=== PATIENT | male | born 1945 | race Caucasian/White ===

== ENCOUNTER 2018-03-11 05:39 | Inpatient (IN) ==
[2018-03-11] MEDS ORDERED: VANCOMYCIN 1,000 MG VIAL ONE (05:56)
[2018-03-11] MEDS ORDERED: ceFAZolin 1,000 MG VIAL ONE (05:56)
[2018-03-11] MEDS ORDERED: ROPIVACAINE 0.5% 30 ML VIAL ONE (06:26)
[2018-03-11] MEDS ORDERED: VANCOMYCIN INJ 1,000 MG in SODIUM CHLORIDE 0.9% 250 ML IV ONE (06:30)
[2018-03-11] MEDS ORDERED: ceFAZolin 1,000 MG in SYRINGE 1 EACH IV ONE (06:30)
[2018-03-11] MEDS: LACTATED RINGERS 1,000 ML IV SCH ×2 (06:50→16:59)
[2018-03-11] MEDS ORDERED: BISACODYL 10 MG SUPP RECTAL PRN (07:07)
[2018-03-11] MEDS ORDERED: LACTULOSE 20 GM/30 ML UDCUP PO PRN (07:07)
[2018-03-11] MEDS ORDERED: MORPHINE 4 MG/1 ML VIAL IV PRN (07:07)
[2018-03-11] MEDS ORDERED: diphenhydrAMINE CAP 25 MG CAPSULE PO PRN (07:07)
[2018-03-11] MEDS ORDERED: MAGNESIUM HYDROXIDE SUSP 30 ML UDCUP PO PRN (07:07)
[2018-03-11] MEDS ORDERED: NALOXONE 0.4 MG/ML VIAL IV PRN (07:07)
[2018-03-11] MEDS ORDERED: TEMAZEPAM 7.5 MG CAPSULE PO PRN (07:07)
[2018-03-11] MEDS ORDERED: PROMETHAZINE 25 MG/1 ML VIAL IM PRN (07:07)
[2018-03-11] MEDS ORDERED: ONDANSETRON 4 MG/2 ML VIAL IV PRN (07:07)
[2018-03-11] MEDS ORDERED: PROPOFOL 500 MG/50 ML BOTTLE IV ONE (08:53)
[2018-03-11] MEDS ORDERED: ONDANSETRON 4 MG/2 ML VIAL ONE (08:53)
[2018-03-11] MEDS ORDERED: fentaNYL 100 MCG/2 ML VIAL ONE (08:53)
[2018-03-11] MEDS ORDERED: MIDAZOLAM 2 MG/2 ML VIAL ONE (08:53)
[2018-03-11] MEDS ORDERED: LIDOCAINE 1% 5 ML VIAL ONE (08:53)
[2018-03-11] MEDS ORDERED: ACETAMINOPHEN 1,000 MG/100 ML VIAL IV ONE (08:53)
[2018-03-11] MEDS ORDERED: PHENYLEPHRINE 1 MG/10 ML SYRINGE IV ONE (08:54)
[2018-03-11] MEDS: MORPHINE PCA 30 MG/30 ML SYRINGE IV SCH (09:01)
[2018-03-11] MEDS ORDERED: MORPHINE PCA 30 MG/30 ML SYRINGE IV ONE (09:01)
[2018-03-11 16:23] LABS: Basophils % 0.2 % (0.0-0.8); Eosinophils # 0.2 10*3/uL (0.0-0.87); Eosinophils % 2.2 % (0.00-10.9); Immature Granulocytes % 0.4 %; Immature Granulocytes Absolute 0.03 #; Lymphocytes # 1.4 10*3/uL (1.4-4.0); Lymphocytes % 17.9 % (21.2-54.2); Mean Corpuscular Hemoglobin 32 PG (27-34); Mean Corpuscular Volume 91.3 FL (87-102); Mean Platelet Volume 10.1 FL (9.6-12.0); Monocytes # 0.6 10*3/uL (0.11-0.8); Monocytes % 7.7 % (1.7-12.7); Neutrophils # 5.8 10*3/uL (1.4-7.4); Neutrophils % 71.6 % (38.7-73.9); Platelet Count 218 T/CUMM (130-400); Red Blood Count 4.38 MC/CUMM (3.8-5.5); Red Cell Distribution Width 12.7 % (9.3-17.3); White Blood Count 8.1 T/CUMM (4-12)
[2018-03-11] MEDS: ceFAZolin 2,000 MG in PREMIX 1 EACH IV SCH (16:51)
[2018-03-11 16:59] LABS: Calcium 8.3 MG/DL (8.5-10.1); Osmolality,Calculated 286.8 MOS/KG (273-304); Potassium 3.8 MMOL/L (3.5-5.1)
[2018-03-11] MEDS: FONDAPARINUX 2.5 MG/0.5 ML SYRINGE SUBCUT SCH (18:51)
[2018-03-11] MEDS: TAMSULOSIN 0.4 MG CAPSULE PO SCH (18:51)
[2018-03-11] MEDS: ASPIRIN EC 81 MG TABLET PO SCH (19:08)
[2018-03-11] MEDS: DOCUSATE SODIUM 100 MG CAPSULE PO SCH ×2 (19:09→21:17)
[2018-03-11] MEDS: LISINOPRIL 10 MG TABLET PO SCH (19:09)
[2018-03-11] MEDS: PRAVASTATIN 20 MG TABLET PO SCH (19:09)
[2018-03-11] MEDS: OMEGA 3 ACID ETHYL ESTERS 1 GM CAPSULE PO SCH ×2 (19:09→21:17)
[2018-03-12] MEDS: ceFAZolin 2,000 MG in PREMIX 1 EACH IV SCH (00:53)
[2018-03-12 06:10] LABS: Basophils % 0.5 % (0.0-0.8); Eosinophils # 0.5 10*3/uL (0.0-0.87); Eosinophils % 5.1 % (0.00-10.9); Hematocrit 37.2 VOL% (42.0-52.0); Hemoglobin 12.6 GM/DL (14.0-18.0); Immature Granulocytes % 0.5 %; Immature Granulocytes Absolute 0.04 #; Lymphocytes # 1.6 10*3/uL (1.4-4.0); Lymphocytes % 17.6 % (21.2-54.2); Mean Corpuscular HGB Conc 33.9 GM/DL (32-36); Mean Corpuscular Hemoglobin 32 PG (27-34); Mean Platelet Volume 10.6 FL (9.6-12.0); Monocytes # 0.8 10*3/uL (0.11-0.8); Neutrophils % 67.3 % (38.7-73.9); Platelet Count 204 T/CUMM (130-400); Red Cell Distribution Width 12.4 % (9.3-17.3); White Blood Count 8.8 T/CUMM (4-12)
[2018-03-12 06:24] LABS: Osmolality,Calculated 275.7 MOS/KG (273-304)
[2018-03-12] MEDS ORDERED: ACETAMINOPHEN 325 MG TABLET PO PRN (07:09)
[2018-03-12] MEDS: LACTATED RINGERS 1,000 ML IV SCH (08:35)
[2018-03-12] MEDS: MORPHINE PCA 30 MG/30 ML SYRINGE IV SCH (10:12)
[2018-03-12] MEDS: DOCUSATE SODIUM 100 MG CAPSULE PO SCH ×2 (10:15→21:09)
[2018-03-12] MEDS: LISINOPRIL 10 MG TABLET PO SCH (10:15)
[2018-03-12] MEDS: ASPIRIN EC 81 MG TABLET PO SCH (10:15)
[2018-03-12] MEDS: OMEGA 3 ACID ETHYL ESTERS 1 GM CAPSULE PO SCH ×2 (10:16→21:09)
[2018-03-12] MEDS: PRAVASTATIN 20 MG TABLET PO SCH (12:12)
[2018-03-12] MEDS: FONDAPARINUX 2.5 MG/0.5 ML SYRINGE SUBCUT SCH (17:55)
[2018-03-12] MEDS: TAMSULOSIN 0.4 MG CAPSULE PO SCH (18:00)
[2018-03-13] MEDS: LACTATED RINGERS 1,000 ML IV SCH (01:54)
[2018-03-13] MEDS: MORPHINE PCA 30 MG/30 ML SYRINGE IV SCH (09:33)
[2018-03-13] MEDS: DOCUSATE SODIUM 100 MG CAPSULE PO SCH ×2 (10:08→20:22)
[2018-03-13] MEDS: ASPIRIN EC 81 MG TABLET PO SCH (10:08)
[2018-03-13] MEDS: LISINOPRIL 10 MG TABLET PO SCH (10:08)
[2018-03-13] MEDS: OMEGA 3 ACID ETHYL ESTERS 1 GM CAPSULE PO SCH ×2 (10:08→20:22)
[2018-03-13] MEDS: PRAVASTATIN 20 MG TABLET PO SCH (12:34)
[2018-03-13] MEDS: TAMSULOSIN 0.4 MG CAPSULE PO SCH (18:45)
[2018-03-13] MEDS: FONDAPARINUX 2.5 MG/0.5 ML SYRINGE SUBCUT SCH (18:46)
[2018-03-14] MEDS: DOCUSATE SODIUM 100 MG CAPSULE PO SCH (08:31)
[2018-03-14] MEDS: OMEGA 3 ACID ETHYL ESTERS 1 GM CAPSULE PO SCH (08:31)
[2018-03-14] MEDS: ASPIRIN EC 81 MG TABLET PO SCH (08:32)
[2018-03-14] MEDS: LISINOPRIL 10 MG TABLET PO SCH (08:32)
[2018-03-14 11:50] VITALS: BP 149/86
[2018-03-14] MEDS: PRAVASTATIN 20 MG TABLET PO SCH (11:55)
== END 2018-03-14 15:35 | disposition home health service (06) | DRG 470 ==
LOC: N.OR 05:39 → N.SDSINP 05:41 → N.3E 15:34
PROVIDERS: ADMIT Orthopaedic Surgery; ATTEND Orthopaedic Surgery

== ENCOUNTER 2021-06-06 05:38 | Observation (INO) ==
[2021-06-06] MEDS ORDERED: VANCOMYCIN INJ 1,000 MG in SODIUM CHLORIDE 0.9% 250 ML IV ONE (06:30)
[2021-06-06] MEDS ORDERED: ACETAMINOPHEN 500 MG TABLET PO ONE (06:52)
[2021-06-06] MEDS ORDERED: GABAPENTIN 400 MG CAPSULE PO ONE (06:52)
[2021-06-06] MEDS ORDERED: LACTATED RINGERS 1,000 ML IV SCH (07:00)
[2021-06-06] MEDS ORDERED: fentaNYL 100 MCG/2 ML VIAL ONE ×2 (08:36→09:52)
[2021-06-06] MEDS ORDERED: GLYCOPYRROLATE 0.4 MG/2 ML VIAL ONE (08:42)
[2021-06-06] MEDS ORDERED: LIDOCAINE 2% 5 ML VIAL ONE (08:42)
[2021-06-06] MEDS ORDERED: ROPIVACAINE 0.5% 30 ML VIAL ONE (08:44)
[2021-06-06] MEDS ORDERED: DEXAMETHASONE 4 MG/1 ML VIAL ONE ×2 (08:44→09:33)
[2021-06-06] MEDS ORDERED: BISACODYL 10 MG SUPP RECTAL PRN (09:22)
[2021-06-06] MEDS ORDERED: diphenhydrAMINE CAP 25 MG CAPSULE PO PRN (09:22)
[2021-06-06] MEDS ORDERED: LACTULOSE 20 GM/30 ML UDCUP PO PRN (09:22)
[2021-06-06] MEDS ORDERED: MORPHINE 2 MG/1 ML SYRINGE IV PRN ×3 (09:22→11:48)
[2021-06-06] MEDS ORDERED: ONDANSETRON 4 MG/2 ML VIAL IV PRN (09:22)
[2021-06-06] MEDS ORDERED: MAGNESIUM HYDROXIDE SUSP 30 ML UDCUP PO PRN (09:22)
[2021-06-06] MEDS ORDERED: TEMAZEPAM 7.5 MG CAPSULE PO PRN (09:22)
[2021-06-06] MEDS ORDERED: PROMETHAZINE 25 MG/1 ML VIAL IM PRN (09:22)
[2021-06-06] MEDS ORDERED: propofoL 200 MG/20 ML VIAL IV ONE (09:33)
[2021-06-06] MEDS ORDERED: ETOMIDATE 40 MG/20 ML VIAL IV ONE (09:33)
[2021-06-06] MEDS ORDERED: ePHEDrine 50 MG/ML VIAL ONE (09:33)
[2021-06-06] MEDS ORDERED: SODIUM CHLORIDE 0.9% 100 ML IV ONE (10:42)
[2021-06-06] MEDS ORDERED: TRANEXAMIC ACID 1,000 MG/10 ML VIAL ONE (10:42)
[2021-06-06] MEDS ORDERED: LACTATED RINGERS 1,000 ML IV ONE (10:42)
[2021-06-06] MEDS ORDERED: PHENYLEPHRINE 1 MG/10 ML SYRINGE IV ONE (10:42)
[2021-06-06] MEDS ORDERED: SEVOFLURANE 1 UNIT/15 MINUTE INH ONE (10:42)
[2021-06-06] MEDS: SIMVASTATIN 10 MG TABLET PO SCH (13:00)
[2021-06-06] MEDS: ceFAZolin 2,000 MG/50 ML DUPLEX IV SCH ×2 (15:29→22:42)
[2021-06-06] MEDS: TAMSULOSIN 0.4 MG CAPSULE PO SCH (20:58)
[2021-06-06] MEDS: ASCORBIC ACID 500 MG TABLET PO SCH (20:58)
[2021-06-06] MEDS: DOCUSATE SODIUM 100 MG CAPSULE PO SCH (20:58)
[2021-06-06] MEDS: FONDAPARINUX 2.5 MG/0.5 ML SYRINGE SUBCUT SCH (20:59)
[2021-06-07 05:25] LABS: Basophils % 0.1 % (0.0-0.8); Hematocrit 38.8 VOL% (42.0-52.0); Hemoglobin 13.3 GM/DL (14.0-18.0); Immature Granulocytes % 0.4 %; Immature Granulocytes Absolute 0.05 #; Lymphocytes # 0.9 10*3/uL (1.4-4.0); Lymphocytes % 8.2 % (21.2-54.2); Mean Corpuscular HGB Conc 34.3 GM/DL (32-36); Mean Corpuscular Volume 93.5 FL (87-102); Mean Platelet Volume 10.3 FL (9.6-12.0); Neutrophils % 83.3 % (38.7-73.9); Platelet Count 203 T/CUMM (130-400); Red Blood Count 4.15 MC/CUMM (3.8-5.5); Red Cell Distribution Width 12.8 % (9.3-17.3); White Blood Count 11.3 T/CUMM (4-12)
[2021-06-07 05:39] LABS: Calcium 8.7 MG/DL (8.5-10.1); Osmolality,Calculated 280.4 MOS/KG (273-304); Potassium 3.8 MMOL/L (3.5-5.1)
[2021-06-07] MEDS: ASCORBIC ACID 500 MG TABLET PO SCH ×2 (08:22→21:07)
[2021-06-07] MEDS: FENOFIBRATE 145 MG TABLET PO SCH (08:22)
[2021-06-07] MEDS: TAMSULOSIN 0.4 MG CAPSULE PO SCH ×2 (08:22→21:08)
[2021-06-07] MEDS: CHOLECALCIFEROL 1,000 UNIT TABLET PO SCH (08:22)
[2021-06-07] MEDS: ASPIRIN CHEW 81 MG TABLET PO SCH (08:22)
[2021-06-07] MEDS: DOCUSATE SODIUM 100 MG CAPSULE PO SCH ×2 (08:22→21:07)
[2021-06-07] MEDS: lisinopriL 10 MG TABLET PO SCH (08:26)
[2021-06-07] MEDS: SIMVASTATIN 10 MG TABLET PO SCH (10:53)
[2021-06-07] MEDS: FONDAPARINUX 2.5 MG/0.5 ML SYRINGE SUBCUT SCH (21:07)
[2021-06-08] MEDS: DOCUSATE SODIUM 100 MG CAPSULE PO SCH ×2 (09:27→20:50)
[2021-06-08] MEDS: ASCORBIC ACID 500 MG TABLET PO SCH ×2 (09:27→20:50)
[2021-06-08] MEDS: ASPIRIN CHEW 81 MG TABLET PO SCH (09:27)
[2021-06-08] MEDS: CHOLECALCIFEROL 1,000 UNIT TABLET PO SCH (09:27)
[2021-06-08] MEDS: FENOFIBRATE 145 MG TABLET PO SCH (09:27)
[2021-06-08] MEDS: lisinopriL 10 MG TABLET PO SCH (09:28)
[2021-06-08] MEDS: TAMSULOSIN 0.4 MG CAPSULE PO SCH ×2 (12:12→20:50)
[2021-06-08] MEDS: SIMVASTATIN 10 MG TABLET PO SCH (12:12)
[2021-06-08] MEDS: FONDAPARINUX 2.5 MG/0.5 ML SYRINGE SUBCUT SCH (20:50)
[2021-06-09] MEDS: FENOFIBRATE 145 MG TABLET PO SCH (08:21)
[2021-06-09] MEDS: ASCORBIC ACID 500 MG TABLET PO SCH (08:21)
[2021-06-09] MEDS: lisinopriL 10 MG TABLET PO SCH (08:21)
[2021-06-09] MEDS: TAMSULOSIN 0.4 MG CAPSULE PO SCH (08:21)
[2021-06-09] MEDS: CHOLECALCIFEROL 1,000 UNIT TABLET PO SCH (08:21)
[2021-06-09] MEDS: ASPIRIN CHEW 81 MG TABLET PO SCH (08:21)
[2021-06-09] MEDS: DOCUSATE SODIUM 100 MG CAPSULE PO SCH (08:21)
[2021-06-09 11:28] VITALS: BP 144/81
[2021-06-09] MEDS: SIMVASTATIN 10 MG TABLET PO SCH (11:56)
[2021-06-09] MEDS: FONDAPARINUX 2.5 MG/0.5 ML SYRINGE SUBCUT SCH (13:01)
== END 2021-06-09 14:19 | disposition home or self-care (01) ==
LOC: N.OR 05:38 → N.SDSINP 05:40 → INTOOBSV 09:22 → N.3E 12:18
PROVIDERS: ADMIT Orthopaedic Surgery; ATTEND Orthopaedic Surgery